=== PATIENT | male | born 1975 | race Two or more races ===

== ENCOUNTER 2016-04-29 02:46 | Emergency (ER) | payer MEDICAID, OTHER ==
[~2016-04-29] VITALS: Ht 170.2 cm; Wt 94.1 kg
[2016-04-29 08:26] VITALS: BP 113/79
== END 2016-04-29 08:32 | disposition home or self-care (01) ==
LOC: ER 02:48
DX: J20.9 Acute bronchitis, unspecified (principal)
CPT/HCPCS: 71020